=== PATIENT | male | born 1960 | race Caucasian/White ===

== ENCOUNTER 2016-08-16 14:06 | Day surgery (SDC) | payer OTHER ==
[~2016-08-16] VITALS: Ht 175.3 cm; Wt 93.0 kg
[~2016-08-16 14:06] MED LIST: 0.9% Sodium Chloride 1,000 ML IV SCH; ATEN25TA PO; ATOR80TA77 PO; CYCL10TA9 PO; LISI40TA PO; ONDA-54 PO; Sodium Chloride LOK Flush 10 mL Syringe IV PRN; fentaNYL-PF 50 mCg/mL 2 mL Inj IVPUSH PRN
[2016-08-16 14:35] VITALS: BP 122/77; PULSE 57; RESP 16; O2SAT 100
--- NOTE | 2016-08-16 16:00 | PCM.ENDCOL ---
Colonoscopy Date of Service: Aug 16, 2016 Physician Emmett Rios MD Pre Procedure Diagnosis: Screening Post Procedure Dx & Findings: Hemorrhoids diverticulosis Procedure Colonoscopy PROCEDURE IN DETAIL: Prep adequate Withdrawal time 11 minutes After unremarkable rectal examination the Olympus video colonoscope was inserted patient's anal canal and was advanced to cecum. Landmarks were identified including the ileocecal valve and appendiceal orifice. Scope was withdrawn systematically. Visualized colonic mucosa showed healthy shiny mucosa with normal healthy-appearing vasculature. Few small sigmoid diverticulosis noted. In the rectum retroflexion was done which showed hemorrhoids. Anal canal was inspected carefully on the way out and hemorrhoids noted. Impression No family history of colon cancer polyp Few small sigmoid diverticula noted. Hemorrhoids Recommendation Repeat colonoscopy 10 years Diverticular diet Presedation Assessment Risks and Benefits Informed consent was obtained from the patient after all risks and benefits including but not limited to drug reaction, infection, pain, bleeding, perforation, as well as alternatives were discussed. Patient monitoring Continuous pulse oximetry, cardiac monitoring, blood pressure monitoring, IV access, and oxygen at 2L per nasal cannula. Periprocedural Fentanyl: Fentanyl 75mcg Incrementally Midazolam: Midazolam 3mg Incrementally Complications There were no periprocedural complications identified. Post Procedure Plan Post Procedure Recommendations 1. Restrict activities today. 2. Resume normal activities in the morning. 3. Resume medications. 4. Patient informed of normal post procedure side effects as bloating, drowsiness, blood streaking in the stool. 5. average risk CRCS. If colon polyps come back as: -Hyperplastic- can repeat colonoscopy in 10 years -Tubular adenoma- repeat colonoscopy in 5 years -Tubulovillous/villous adenoma- repeat colonoscopy in 3 years -If any dysplasia- return to clinic as soon as possible 6. Please don't hesitate to call me with any questions. Emmett Rios MD Aug 16, 2016 16:00
[2016-08-16 16:01] VITALS: BP 118/73; PULSE 72; RESP 12; O2SAT 97
[2016-08-16 16:11] VITALS: BP 119/69; PULSE 68; RESP 12; O2SAT 97
[2016-08-16 16:21] VITALS: BP 115/69; PULSE 67; RESP 14; O2SAT 95
[2016-08-16 16:31] VITALS: BP 119/75; PULSE 67; RESP 12; O2SAT 97
== END 2016-08-16 23:59 | disposition home or self-care (01) ==
LOC: END 14:06
PROVIDERS: ATTEND Internal Medicine
DX: Z12.11 Encounter for screening for malignant neoplasm of colon (principal); K64.9 Unspecified hemorrhoids; K57.30 Diverticulosis of large intestine without perforation or abscess without bleeding; I10 Essential (primary) hypertension; E78.2 Mixed hyperlipidemia; M54.5 Low back pain; R73.09 Other abnormal glucose; I70.0 Atherosclerosis of aorta; K21.9 Gastro-esophageal reflux disease without esophagitis
CPT/HCPCS: G0121; G0500; J2250; J3010; J7030

== ENCOUNTER 2016-10-13 16:03 | Observation (INO) | payer OTHER ==
[~2016-10-13] VITALS: Ht 175.3 cm; Wt 96.5 kg
[~2016-10-13 16:03] MED LIST changes: -0.9% Sodium Chloride 1,000 ML IV SCH; -Sodium Chloride LOK Flush 10 mL Syringe IV PRN; -fentaNYL-PF 50 mCg/mL 2 mL Inj IVPUSH PRN
[2016-10-13 16:05] VITALS: BP 168/106; PULSE 55; RESP 16; O2SAT 99
[2016-10-13 17:00] LABS: BASOPHILS % (AUTO) 0.4 % (0-3); EOSINOPHILS % (AUTO) 0.8 % (0-5); MONOCYTES % (AUTO) 11.2 % (4-12); Mean Corpuscular Hemoglobin 30.7 pg (27.0-35.0); Mean Corpuscular Volume 90.3 fL (81-100); NEUTROPHILS % (AUTO) 67.4 % (40-74); Platelet Count 244 bil/L (150-400)
[2016-10-13 17:06] VITALS: BP 142/72; PULSE 57; RESP 20; O2SAT 99
[2016-10-13 17:19] LABS: TROPONIN T < 0.010 ug/L (0.0-0.011)
[2016-10-13 17:29] LABS: Magnesium 2.1 mg/dL (1.6-2.6)
--- NOTE | 2016-10-13 17:35 | DRSVH ---
PROCEDURE: X-RAY CHEST ONE VIEW, PORTABLE ([id number]) INDICATIONS: Chest pain TECHNIQUE: One view of the chest was acquired. COMPARISON: None. FINDINGS: Surgical changes and devices: None. Lungs and pleura: No pleural effusions or pneumothorax. Lungs are clear. Mediastinum: Mediastinal contours appear normal. Heart size is normal. Bones and chest wall: No suspicious bony lesions. Overlying soft tissues appear unremarkable. IMPRESSION: No acute cardiopulmonary disease process. Dictated by: Milly Madison MD, PhD on 10/13/2016 at 17:34 Approved by: Milly Madison MD, PhD on 10/13/2016 at 17:34
--- NOTE | 2016-10-13 17:43 | ED.REPORT ---
HPI-Chest Pain 40 and Over Date of Service Oct 13, 2016 ED Provider: Arnaud Huffman MD Pt is a 56 y/o male w/ a hx of HTN, HLD, presenting to the ED c/o substernal chest pressure which began at 11:00 today and lasted until he arrived to the ED and was given nitro. 5 days ago he had an episode of similar chest pressure lasting 6 hours. He c/o associated nausea, vomiting, SOB, lightheadedness. He was changed from Atenolol to Metoprolol last week and is concerned that he may be experiences medication side-effects from the change. Nursing Notes Stated Complaint: CARDIAC EVENT Chief Complaint: Dysrhythmia/Cardiac Nursing Notes Reviewed: Yes Allergies: Coded Allergies: hydrochlorothiazide (Verified Allergy, Unknown, 10/13/16) Scheduled Atenolol (Atenolol) 50 Mg Tablet 50 MG PO DAILY Atorvastatin Calcium (Atorvastatin Calcium) 80 Mg Tablet 80 MG PO DAILY Lisinopril (Lisinopril) 40 Mg Tablet 40 MG PO DAILY Scheduled PRN Cyclobenzaprine (Cyclobenzaprine) 10 Mg Tablet 10 MG PO TID PRN PRN Spasm General Time Seen by MD: 17:48 Chief Complaint Chest pressure Hx Obtained From: Patient Arrived By: Walk-in Sudden in Onset?: Yes Onset Occurred: 5 - 8 hours ago Symptom Duration: 1 - 4 hours Location: : Substernal Quality: Pressure Severity: Current: No pain currently Severity: Maximum: Moderate Recent Healthcare: No recent hospitalization Similar Sx Previous: No Risk Factors HEART Score HEART for MACE: High index of susp (2), Nonspec repol disturb (1), Age 45 - 65 (1), 1-2 CAD risk factors (1), < or = to NL troponin (0) HEART for MACE Score: 4-7 (mod risk 12%-16.6%) Past Medical History Past Medical History Hypertension Hyperlipidemia Past Surgical History None reported Smoking History Never Smoker Social History Alcohol Use: "Social" Ambulatory Status Independent Review of Systems Respiratory: Reports: Shortness of breath, Denies: Non-productive cough Cardiovascular: Reports: Chest pain GI: Reports: Nausea, Vomiting Neurologic: Reports: Lightheaded Complete sys rev & neg: except as marked. Physical Exam Initial Vital Signs Vital Signs (First) Date Time Temp Pulse Resp B/P Pulse Ox O2 Delivery O2 Flow Rate FiO2 10/13/16 16:05 36.0 55 16 168/106 99 Room Air Initial VS: Reviewed, Vital signs abnormal Head / Eyes: Atraumatic, Normocephalic ENT: Mucous membranes moist, Conjunctiva normal Neck: Supple, Full range of motion Extremities: Vascular intact, Neuro intact, No swelling Skin: Warm, Dry, No cyanosis Neurologic: Alert, Oriented, Nonfocal Psychiatric: Mood/affect normal, Behavior normal, Normal thought content General/Constitutional: Awake, Alert, No acute distress, Well appearing, Cooperative, Not toxic appearing Respiratory / Chest: Breath sounds NL, Breath sounds = bilat, No respiratory distress, No rales, No rhonchi, No wheezing, No retractions, No stridor Cardiovascular: Heart rate NL, Regular rhythm, Heart sounds NL, No murmurs Abdomen: Soft, Non-tender, No guarding, No rebound, No distention, No palpable mass Interpretation & Diagnostics Lab Results Interpretation Result Diagram: 10/14/16 0615 10/14/16 0615 Test 10/13/16 16:53 10/13/16 16:54 Total Bilirubin 0.4mg/dL (0.0-1.2) Aspartate Amino Transf (AST/SGOT) 25U/L (0-50) Alanine Aminotransferase (ALT/SGPT) 38U/L (0-44) Alkaline Phosphatase 106U/L (25-150) Total Protein 7.3g/dL (6.4-8.4) Albumin 4.4g/dL (3.4-5.0) Hold Gipson Top Tube Received (Received) ECG Interpretation ECG Interpretation: Sinus rhythm rate 55 Early repolarization Time: 16:45 Interpreted by: ED physician Normal ECG Interpretation: No acute ischemic changes X-Ray Chest Interpretation Chest Xray Interpretation: IMPRESSION: No acute cardiopulmonary disease process. Dictated by: Milly Madison MD, PhD on 10/13/2016 at 17:34 Approved by: Milly Madison MD, PhD on 10/13/2016 at 17:34 View: Portable, 1 view Interpretation / Wet Read by: Interpret - Radiologist Re-Eval/Medical Decision Med Decision/Clinical Course 56-year-old male history of hypertension, hyperlipidemia presenting with intermittent left-sided chest pain throughout the day today which resolved with nitroglycerin on arrival. No EKG changes. Troponins initial are negative. Patient will be admitted for ACS rule out. Time of Eval: 17:46 Patient Status: Condition resolved Re-Evaluation/Progress Note: Pt rechecked. Informed pt of need for admission for ACS ruleout. Pt understands and agrees with plan for admission. All questions addressed. Consultation : Referral / Consult Name: Hermelindo Carroll DO Consulted With: Hospitalist Super[employer]: Accepts admit Counseled Regarding: Diagnosis, Lab results, Need for admission Discharge & Departure Primary Impression: Chest pain with moderate risk for cardiac etiology Disposition: ADMITTED TO HOSPITAL Discharge Condition All VS Reviewed: Yes Condition: Stable Referrals: Brittani Atkinson MD (PCP) Scribe Attestation Portions of this note were transcribed by Jay Cárdenas. I, Dr. Huffman personally performed the history, physical exam and medical decision-making; I reviewed and confirmed the accuracy of the information in the transcribed note. copies to: Brittani Atkinson MD, Ben M MD Oct 13, 2016 17:43 JAY CÁRDENAS Oct 13, 2016 17:50 Magnesium Level 2.1mg/dL (1.6-2.6) Total Bilirubin 0.4mg/dL (0.0-1.2) Aspartate Amino Transf (AST/SGOT) 25U/L (0-50) Alanine Aminotransferase (ALT/SGPT) 38U/L (0-44) Alkaline Phosphatase 106U/L (25-150) Troponin T < 0.010ug/L (0.0-0.011) Total Protein 7.3g/dL (6.4-8.4) Albumin 4.4g/dL (3.4-5.0) Hold Gipson Top Tube Received (Received) ECG Interpretation ECG Interpretation: Sinus rhythm rate 55 Early repolarization Time: 16:45 Interpreted by: ED physician Normal ECG Interpretation: No acute ischemic changes X-Ray Chest Interpretation Chest Xray Interpretation:
[2016-10-13] MEDS ORDERED: METO25TA6 PO (18:07)
[2016-10-13] MEDS ORDERED: Ondansetron 2 mg/mL 2 mL Inj IVPUSH PRN ×2 (18:20→19:20)
[2016-10-13] MEDS ORDERED: Alum-Mag Hydrox-Simeth 30 mL Suspension PO PRN ×2 (18:20→19:20)
[2016-10-13 19:00] VITALS: BP 146/89; PULSE 64; RESP 15; O2SAT 98
[2016-10-13] MEDS ORDERED: Polyethylene Glycol (PEG) 17 Gm Powder PO PRN (19:20)
--- NOTE | 2016-10-13 19:48 | PCM.HPMED ---
Subjective Date of Service Oct 13, 2016 Primary Provider: Admitting Physician: Johan Ross MD Primary Care Physician: Brittani Atkinson MD Attending Physician: Johan Ross MD Admit Status: From the Emergency Department, Remote Telemetry Chief Complaint: chest pressure History of Present Illness: Mr. De Jesus is a pleasant 56 year old gentleman with reported history of hypertension and hyperlipidemia, that presented to the emergency department with a history of 2 episodes of chest pressure, with associated headache, dizziness, lightheadedness, nausea and vomiting, shortness of breath, and diaphoresis. Initial laboratory results were unremarkable for any elevated cardiac enzymes, and no acute EKG changes were seen. Patient was admitted for observation and further work up of acute coronary syndrome. - Hospital day 1 Patient reports 2 episodes of similar presentation, with initial being recent 10/08/2016, and a second recurrence day of admission, 10/13/2016. Patient reports symptoms of chest pressure or merely over left side of chest, without any radiation, and no history of similar other than the previous Tuesday episode. He denies any associated abdominal pain; admits to chest pain/pressure , headache, dizziness, lightheaded, nausea, vomiting, shortness of breath, diaphoresis, and overall "feeling terrible." He states he tried his sea sick medication did not provide any relief. States that his previous episode that occurred Tuesday prior to admission was worse in presentation and symptoms than day of admission. He states day of admission, symptoms began approximately 11 AM. He attributes his symptoms to a change of his home medications from atenolol to metoprolol, and has been on metoprolol therapy for approximately the recent week. He believes his symptoms correlate with this change in medication. He describes the onset of symptoms as rapid, lasting approximately 6 hours, and improvements were reported with rest and time. In the ED, initial vitals include temperature 36.0, pulse 55, respiratory rate 16, blood pressure 168/106, 99% on room air; white count 7.6 with no shift, hemoglobin 15.2, hematocrit 44.7, platelets 244; sodium 140, potassium 4.1, creatinine 0.75, glucose 142, LFTs within range, initial troponin T negative; chest x-ray did not reveal any acute cardiopulmonary disease; EKG revealed normal sinus rhythm without any acute ST-T changes, QTc was noted to be 410, and rate 55. Initial therapies included aspirin 324 mg 1, Nitrostat sublingual. Patient was transferred to medical floor in stable condition Review of Systems: Complete review of systems obtained, pertinent positives and negatives as noted in history of present illness Allergies Coded Allergies: hydrochlorothiazide (Verified Allergy, Unknown, 10/13/16) Home Medications Patient reports: Atorvastatin, lisinopril, metoprolol ED documentation shows: Scheduled Atorvastatin Calcium (Atorvastatin Calcium) 80 Mg Tablet 80 MG PO DAILY Lisinopril (Lisinopril) 40 Mg Tablet 40 MG PO DAILY Metoprolol Tartrate (Metoprolol Tartrate) 25 Mg Tablet 25 MG PO BID Scheduled PRN Cyclobenzaprine (Cyclobenzaprine) 10 Mg Tablet 10 MG PO TID PRN PRN Spasm PMH Patient reports: Hypertension Hyperlipidemia Patient denies any history of diabetes or heart failure Surgical History None reported Family History Patient reports significant cardiac history including paternal grandparent whom at age 55 secondary to coronary artery disease and myocardial infarction Patient also reports extensive family history of hyperlipidemia, but denies any family history of diabetes, stroke/TIA Social History Occupation: warehouse receiving supervisor Hx Alcohol Use: Yes (reports 2-3 glasses of whiskey nightly) Alcoholic Drinks Per Day: 2-3 Hx Substance Use: Yes (distant use of marijuana) Hx Tobacco Use: No Smoking Status: Never Smoker Living Arrangement: with Family (girlfriend, local in ) Exam Vital Signs Vital Sign - Last Date Time Temp Pulse Resp B/P Pulse Ox O2 Delivery O2 Flow Rate FiO2 10/13/16 19:00 64 15 146/89 98 Room Air 10/13/16 16:05 36.0 Exam General: Alert and oriented 3; pleasant gentleman resting supine in bed in no acute distress HEENT: Atraumatic, normocephalic, sclera anicteric, membranes moist Neck: Full range of motion without pain Cardiac: Regular rate and rhythm at time of examination without any appreciable murmurs Respiratory: Equal airflow all calvin without any wheeze or rhonchi Chest: Atraumatic without any reproducible pain with palpation Abdomen: Soft, nontender, nondistended Extremities: No edema appreciated Skin: Warm and dry MSK: 5/5 strength 4/4 extremities at major joints of the shoulder, hip Neuro: Cranial nerves II-XII grossly intact, speech without slur, facial expressions equal and symmetric Psych: Appropriate mood, affect, and responses to questions; good insight and judgment Lab and Diagnostics Result Diagram: 10/13/16165210/13/161652 Assessment & Plan Mr. De Jesus is a pleasant 56 year old gentleman with reported history of hypertension and hyperlipidemia, that presented to the emergency department with a history of 2 episodes of chest pressure, with associated headache, dizziness, lightheadedness, nausea and vomiting, shortness of breath, and diaphoresis. Initial laboratory results were unremarkable for any elevated cardiac enzymes, and no acute EKG changes were seen. Patient was admitted for observation and further work up of acute coronary syndrome. - Hospital day 1 Chest pressure, acute, present on admission, under evaluation - Cardiac likely in a patient with a history of hypertension, hyperlipidemia, strong family history coronary artery disease - Medication adverse effect possibility recent change atenolol to metoprolol, the patient has moderate risk for cardiac events - HEART score: 4 (history +1, EKG +0, age +1, risk factors greater than 3 +2, initial troponin +0) - EKG prn cardiac symptoms; EKG in a.m. - PRN morphine - Labs: Evaluate for electrolytes, thyroid possible etiologies for symptoms - Initiate daily aspirin therapy; patient already on statin, ACEi, beta paresh - Exercise treadmill NM in am - Npo at midnight Suspected adverse medication reaction, acute, present on admission, under consideration - Patient reports recent outpatient change from atenolol to metoprolol - We will discontinue metoprolol at this time; consider change to carvedilol for patient at discharge - We will be holding morning beta paresh secondary to pending cardiac stress test Hypertension, chronic, presumed stable - We will hold beta paresh secondary to impending cardiac stress test - Consider change from metoprolol to carvedilol as noted above Hyperlipidemia, chronic, presumed stable - Continue statin therapy - We will check lipid panel PRN fever, bowel, nausea, pain DVT: Hep q8 Diet: Heart healthy until 0000 10/14/2016 GI: H2B Code: FULL CODE Pt status: Due to presenting symptoms, risk of adverse events, and likely course of care, patient not expected to stay greater than 2 midnight; patient admitted as observation status Pain Evaluation: Adequate Pain Control GI Prophylaxis: H2 paresh VTE Prophylaxis: Sub-Q Heparin (Unfractionated) Resuscitation Status: CPR: Attempt Resuscitation Attending Statement The patient was seen and examined together with Dr. Kay on 10/13 and I agree with the history, exam and plan as outlined in the note above. Bernie Kay DO Oct 13, 2016 19:48 Johan Ross MD Oct 13, 2016 23:58
[2016-10-13 20:20] VITALS: BP 170/102; PULSE 53; RESP 18; O2SAT 97
[2016-10-13 23:50] VITALS: BP 174/97; PULSE 59; RESP 18; O2SAT 98
[2016-10-14] VITALS (14 sets, daily range): BP systolic 143–170; BP diastolic 85–117; PULSE 54–84; RESP 16–18; O2SAT 96–99
[2016-10-14] MEDS: Heparin 5,000 Unit/mL Inj SUBQ SCH ×3 (00:41→17:50)
--- NOTE | 2016-10-14 06:38 | NUR ---
Admit Admitted from ED via stretcher. Able to ambulate on arrival with strong steady gait and no noted issues. IV SL. RA w/o SOB. Tele SR w/o CP. NPO at midnight per MD orders. Personal belonging at bedside. Oriented to call light use and using for needs.
[2016-10-14 06:58] LABS: BASOPHILS % (AUTO) 0.3 % (0-3); EOSINOPHILS % (AUTO) 1.6 % (0-5); Mean Corpuscular Hemoglobin 30.8 pg (27.0-35.0); Mean Corpuscular Volume 90.2 fL (81-100); NEUTROPHILS % (AUTO) 66.5 % (40-74); Platelet Count 200 bil/L (150-400)
[2016-10-14 07:25] LABS: Magnesium 1.9 mg/dL (1.6-2.6); Phosphorus 3.4 mg/dL (2.5-4.9)
[2016-10-14] MEDS ORDERED: Lisinopril 40 Tablet PO SCH (07:55)
[2016-10-14] MEDS ORDERED: Lisinopril 40 Tablet PO ONE (08:50)
--- NOTE | 2016-10-14 09:05 | NUR ---
Social Work-initial assessment/ readiness for discharge: Data:See initial assessment. Pt is a 56 y/o male who was admitted on 10/13/16 for chest pain per H&P. Pt's insurance is [employer] and PCP is Brittani Atkinson MD. EMR reviewed. Pt's readmission score is 0. SW met with pt at bedside, SW role explained. Pt is alert and oriented x3. Pt resides at home alone where he remains independent with ADLs at baseline. Pt drives and does not use any DME. Pt has no HH or SNF history. Pt has no prison care insurance or VA benefits. SW discussed DPOA/ advanced directive, pt has not completed this and is declining any information. No concerns noted about pt's capacity for self care per RN or MD. Pt has been up independent in his room. SW provided pt with discharge planning checklist and encouraged pt to call with any questions,phone number provided on white board in room. pt's family to provide transport home. No anticipated discharge needs. SW will continue to follow if needs arise. Assessment:Pt who is independent at baseline. Plan:Pt to discharge home when medically stable via POV. No anticipated discharge needs. SW will continue to follow if needs arise. MEHDI Pappas Addendum: 10/14/16 at 0915 by JONAS MAYBERRY Amended: Links added.
[2016-10-14] MEDS: Famotidine Inj 20 MG in IV Premix 1 EACH IV SCH ×2 (09:40→19:59)
[2016-10-14] MEDS ORDERED: ATEN50TA PO (10:04)
[2016-10-14] MEDS ORDERED: Labetalol 5 mg/mL 20 mL Inj IVPUSH ONE (11:50)
--- NOTE | 2016-10-14 12:34 | DRSVH ---
[facility] [address] [place] [address] Echocardiogram Report Name: PIETRO ORDAZ RStudy Date: 10/14/2016 Height: 69 in Hospital Exam Location: [facility] Weight: 212 lb Gender: Male BSA: 2.1 m2 : 1960 Age: 56 yrs BP: 170/90 mmHg Reason For Study: Chest Pain Ordering Physician: HOSPITALIST [facility] Performed By: Mckayla Aquino [facility]erring Phys[facility] Interpretation Summary Left ventricular wall thickness is mildly increased. Left ventricular systolic function is normal without focal wall motion abnormalities. The ejection fraction is estimated to be 60-65%. The right ventricle is normal in size and function. Pulmonary artery pressures cannot be estimated because of the lack of a measurable TR jet velocity. The left atrial size is normal. The right atrium is normal in size. There is no significant valvular heart disease. The ascending aorta is mildly enlarged. Procedure: A two-dimensional transthoracic echocardiogram with color flow and Doppler was performed. The study quality was technically adequate. The apical views were difficult to obtain and are suboptimal in quality. Most of the acoustic windows were suboptimal, but the best imaging was obtained from the parasternal window. There is no prior echocardiogram noted for this patient. The patient was in normal sinus rhythm during the exam. Left Ventricle: The left ventricle is normal in size. Left ventricular wall thickness is mildly increased. Left ventricular systolic function is normal without focal wall motion abnormalities. The ejection fraction is estimated to be 60-65%. Assessment of diastolic parameters indicates normal left ventricular diastolic function and normal filling pressures. Right Ventricle: The right ventricle is normal in size and function. Atria: The left atrial size is normal. The right atrium is normal in size. The interatrial septum is intact with no evidence for an atrial septal defect. Mitral Valve: The mitral valve leaflets appear mildly thickened, but open well. There is trace mitral regurgitation. Aortic Valve: The aortic valve is trileaflet. The aortic valve opens well. No aortic regurgitation is present. Tricuspid Valve: The tricuspid valve leaflets are thin and pliable. There is trace tricuspid regurgitation. Pulmonary artery pressures cannot be estimated because of the lack of a measurable TR jet velocity. Pulmonic Valve: The pulmonic valve is normal in structure and function. There is a trace or physiologic amount of pulmonic regurgitation. There is no significant valvular heart disease. Great Vessels: The aortic root is normal size. The ascending aorta is mildly enlarged. The IVC is of normal diameter and collapses greater than 50% with a sniff. This suggests a low right atrial pressure of 3 mm Hg. Pericardium/ Pleura There is an anterior echo-free space consistent with a fat pad. There is no pericardial effusion. There is no pleural effusion. MMode/2D Measurements & Calculations LVIDd: 4.7 cm RA long axis LVOT diam LVIDs: 3.3 cm LA A2 area: 19.7 cm FS: 30.5 % LA A4 area: 22.7 cm RA area asc Aorta IVSd: 1.1 cm LA length (vol): 6.0 cm Diam: 3.6 cm LVPWd: 1.1 cm LA vol: 63.3 ml : 13.3 cm LA vol index RA vol: 36.6 ml RA : 29.9 ml/m2 : 17.3 mm2 LV gong. diameter/BSA LV sys. diameter/BSA TAPSE: 2.9 cm (cm/m^2): 2.2 (cm/m^2): 1.5 Doppler Measurements & Calculations Ao V2 max: 119.6 cm/secMV E max joe MV E/A: 1.1 PA V2 max Ao max P.7 mmHg : 75.4 cm/sec Med Peak E' Joe : 57.0 cm/sec Ao mean P.7 mmHg MV A max joe PA mean PG LVOT Max Joe : 66.8 cm/sec E/E' med: 11.9 : 0.63 mmHg : 97.4 cm/sec Lat Peak E' Joe DANIELITO(I,D): 3.6 cm sev ratio: 0.83 E/E' lat: 9.6 E/e' average MV dec time: 0.16 sec Ao V2 mean LV V1 max PG PA V2 mean : 77.7 cm/sec : 37.3 cm/sec Ao V2 VTI: 23.8 cmLV V1 VTI: 19.8 cm PA pr(Accel) DANIELITO(V,D): 3.5 cm2 : 24.1 mmHg DANIELITO indexed to BSA (cm^2/m^2): 1.7 Reading Physician:KOFI
--- NOTE | 2016-10-14 15:02 | PCM.PNMED ---
Subjective Date of Service Oct 14, 2016 Subjective pt was asymptomatic but stress test was canceled due to high DBP newly started amlodipine 5mg and continued [id number] Exam Vital Signs Vital Sign - Last Date Time Temp Pulse Resp B/P Pulse Ox O2 Delivery O2 Flow Rate FiO2 10/14/16 14:32 62 158/99 10/14/16 11:43 97 10/14/16 11:40 Room Air 10/14/16 10:00 36.7 18 Intake and Output 10/13/16 10/13/16 10/14/16 Cumulative From/Thru 15:00 23:00 07:00 10/13/16 16:05 - 10/14/16 00:30 Intake Total 0 ml 0 ml Balance 0 ml 0 ml IV Total 0 ml 0 ml IVs and Medications Medications Reviewed: Medications were reviewed in detail Lab and Diagnostics Result Diagram: 10/14/16 0615 10/14/16 0615 Assessment & Plan Mr. De Jesus is a pleasant 56 year old gentleman with reported history of hypertension and hyperlipidemia, that presented to the emergency department with a history of 2 episodes of chest pressure, with associated headache, dizziness, lightheadedness, nausea and vomiting, shortness of breath, and diaphoresis. Initial laboratory results were unremarkable for any elevated cardiac enzymes, and no acute EKG changes were seen. Patient was admitted for observation and further work up of acute coronary syndrome. Chest pressure, acute, present on admission, Cardiac likely in a patient with a history of hypertension, hyperlipidemia, strong family history coronary artery disease. HEART score: 4 (history +1, EKG +0, age +1, risk factors greater than 3 +2, initial troponin +0) -pt remained clinially stable today - PRN morphine - Labs: Evaluate for electrolytes, thyroid possible etiologies for symptoms - Initiate daily aspirin therapy; patient already on statin, ACEi, beta paresh - Exercise treadmill NM tomorrow AM, delayed due to increased DBP - Npo at midnight Suspected adverse medication reaction, POA, probable allergic reaction given newly developed hoarseness per pt, currently asymptomatic, -will switch back to atenolol on d/c HTN, POA, uncontrolled 150/100s, continue lisinopril, atenolol, added amlodipine 5mg today chronic, stable Hypertension, chronic, presumed stable - We will hold beta paresh secondary to impending cardiac stress test - Consider change from metoprolol to carvedilol as noted above Hyperlipidemia, chronic, presumed stable - Continue statin therapy - We will check lipid panel PRN fever, bowel, nausea, pain DVT: Hep q8 Diet: Heart healthy until 0000 10/14/2016 GI: H2B Code: FULL CODE Pt status: likely tomorrow after stress test GI Prophylaxis: H2 paresh VTE Prophylaxis: Sub-Q Heparin (Unfractionated) Resuscitation Status: CPR: Attempt Resuscitation Time spent 35min Emely Verdin MD Oct 14, 2016 15:02
--- NOTE | 2016-10-14 18:20 | NUR ---
Shift Report: Patient was slated to get Stress Test today but BP was not in parameters, even after a dose of 15mg of Labetalol. Postponed to 0845 tomorrow morning. New meds ordered to be given before test. Will be NPO at midnight again.
[2016-10-15] MEDS: Heparin 5,000 Unit/mL Inj SUBQ SCH ×2 (00:03→08:30)
[2016-10-15 04:43] VITALS: BP 139/89; PULSE 59; RESP 16; O2SAT 95
[2016-10-15 06:08] VITALS: PULSE 58
[2016-10-15] MEDS: Famotidine Inj 20 MG in IV Premix 1 EACH IV SCH (08:30)
--- NOTE | 2016-10-15 09:23 | NUR ---
Transferred to [facility] Patient transferred to [facility]L at 0923.
[2016-10-15 09:33] VITALS: BP 142/77; PULSE 63; RESP 17; O2SAT 97
[2016-10-15 10:12] VITALS: PULSE 60
[2016-10-15 13:16] VITALS: BP 156/104; PULSE 59; RESP 18; O2SAT 99
--- NOTE | 2016-10-15 13:26 | DRSVH ---
PROCEDURE: 1 DAY TREADMILL STRESS TEST Rest and exercise myocardial perfusion SPECT with gated imaging and ejection fraction RADIOPHARMACEUTICAL: 8 .8 mCi Tc-99m tetrafosmin IV at rest and 25.7 mCi Tc-99m tetrafosmin IV at pea k exercise. [id number] was performed. INDICATIONS: Chest pain/pressure. TECHNIQUE: Radiopharmaceutical was injected at peak stress test, and also at rest. SPECT images wer e obtained. SPECT myocardial perfusion images were displayed in short axis, horizontal long axis, an d vertical long axis views. Gated images were reviewed using [employer] software. COMPARISON: None. CARDIAC STRESS: A standard Iam treadmill exercise tolerance test was performed by the patient under the supervision of an attending staff. The patient exercised for 9 minutes and 33 seconds; functional aerobic impai rment (FARTUN) is -6 %. Hemodynamic data: Hypertensive response to stress is present, with blood pressure of 170/90. There i s normal heart rate response to exercise stress. Patient achieved 91% of maximum predicted heart rat e at peak exercise. Symptoms: Patient denied chest pain during exercise. EKG: No diagnostic EKG changes of ischemia; no ectopy. Bradycardia is seen at baseline. FINDINGS: Raw data: There is good myocardial labeling by radiotracer. No significant motion artifacts. Left ventricle function: Gated images demonstrate normal left ventricle wall thickening. No segment al wall motion abnormality. The left ventricle resting end-diastolic volume is 65 mL. Left ventricl e stress ejection fraction is 70%; normal values are above 45%. Myocardial perfusion: There is normal distribution of activity in the left and right ventricular sumanth cardium. No fixed or reversible perfusion defects. IMPRESSION: 1. No evidence of myocardial ischemia. 2. Hypertensive response to exercise. 3. Normal left ventricular function. PQRS ATTESTATIONS: Measure 322 - Is this imaging test primarily performed on a low-risk surgery patient for preoperative evaluation within 30 days preceding their low-risk non-cardiac surgery? Low-risk surgery is defined as cardiac or myocardial infarction less than 1%, including (but not limited to) endoscopic pr ocedures, superficial procedures, cataract surgery, and excisional breast surgery: Answer: No Measure 323 - Is this imaging test performed primarily for the monitoring of an asymptomatic patient who had percutaneous coronary intervention on the visit date or within 2 years of the visit date? An swer: No Measure 324 - Is this imaging test performed primarily for the initial detection and risk assessment on an asymptomatic, low coronary heart disease patient? Low CHD risk definition = clinicians should consider the maximum number of available patient factors used to estimate risk based on [place] (A TP III criteria), typically age, gender, diabetes, smoking status, and use of blood pressure medicati on, and integrate age appropriate estimates for missing elements, such as LDL or standard blood press ure. Answer: No Dictated by: Ayala Jarvis M.D. on 10/15/2016 at 13:22 Approved by: Ayala Jarvis M.D. on 10/15/2016 at 13:25
--- NOTE | 2016-10-15 13:45 | PCM.DIMED ---
Discharge Instructions Date of Service Oct 14, 2016 Dates of Hospitalization Oct 13, 2016 at 18:28 Discharge Diagnosis Discharge Diagnosis Chest pain, unlikely cardiac etiology Diet Discharge Diet: No restrictions, Low fat, Low Sodium Activity Discharge Activity: No restrictions Call your provider Call your provider for: Shortness of breath, Chest pain Patient Instructions Patient Instructions Your hospitalized with 2 episode of acute onset chest pain. All of the workup during hospitalization shows that you do not have active heart attack. As you may have experienced adverse effect from metoprolol, atenolol will be resumed. Please follow-up with your primary doctor in one or 2 weeks Please return to hospital if you notice more frequent and severe degree of chest pain Follow-up Provider: Brittani Atkinson MD Follow-up with PCP in: 1 week Emely Verdin MD Oct 14, 2016 11:14
--- NOTE | 2016-10-15 14:30 | NUR ---
Social Work: Discharge Note Data: EMR reviewed. Patient is on day 2 of hospitalization for chest pain per H&P. Patient was discussed in morning rounds. Patient has been deemed medically stable for discharge per MD. Patient has no anticipated discharge needs at this time. Transportation will be provided by family. Assessment: Patient will discharge home. Plan: Patient will discharge home today. Patient has no discharge needs. Transportation will be provided by family. Patient has no additional needs at this time. MEHDI Baird
[2016-10-15 15:18] VITALS: BP 144/91; PULSE 62; O2SAT 98
[2016-10-15] MEDS ORDERED: AMLO5TAB2 PO (15:40)
--- NOTE | 2016-10-15 16:12 | NUR ---
Discharge Patient discharge to home with all belongings at 1600. Explained to patient new medications (amlodipine, atenolol), when next medications are due and discharge instructions. Patient verbalized understanding. Dc'd IV intact. Dc'd telemetry. Vitals stable. Patient left floor on his own two feet with no signs of distress accompanied by this RN.
--- NOTE | 2016-10-15 16:40 | PCM.DC.MED ---
Discharge Summary Date of Service Oct 15, 2016 Dates of Hospitalization Date of Hospital Admission Oct 13, 2016 at 18:28 Date of Discharge: Oct 15, 2016 Providers: Admitting Physician: Johan Ross MD Primary Care Physician: Brittani Atkinson MD Attending Physician: Emely Hudson MD Diagnosis at Time of Discharge Diagnosis at Time of Discharge Chest pain, unlikely cardiac etiology Procedures XRay, CTs & MRIs PROCEDURE: 1 DAY TREADMILL STRESS TEST Rest and exercise myocardial perfusion SPECT with gated imaging and ejection fraction RADIOPHARMACEUTICAL: 8 .8 mCi Tc-99m tetrafosmin IV at rest and 25.7 mCi Tc-99m tetrafosmin IV at peak exercise. [id number] was performed. INDICATIONS: Chest pain/pressure. TECHNIQUE: Radiopharmaceutical was injected at peak stress test, and also at rest. SPECT images were obtained. SPECT myocardial perfusion images were displayed in short axis, horizontal long axis, and vertical long axis views. Gated images were reviewed using [employer] software. COMPARISON: None. CARDIAC STRESS: A standard Iam treadmill exercise tolerance test was performed by the patient under the supervision of an attending staff. The patient exercised for 9 minutes and 33 seconds; functional aerobic impairment (FARTUN) is -6 %. Hemodynamic data: Hypertensive response to stress is present, with blood pressure of 170/90. There is normal heart rate response to exercise stress. Patient achieved 91% of maximum predicted heart rate at peak exercise. Symptoms: Patient denied chest pain during exercise. EKG: No diagnostic EKG changes of ischemia; no ectopy. Bradycardia is seen at baseline. FINDINGS: Raw data: There is good myocardial labeling by radiotracer. No significant motion artifacts. Left ventricle function: Gated images demonstrate normal left ventricle wall thickening. No segmental wall motion abnormality. The left ventricle resting end-diastolic volume is 65 mL. Left ventricle stress ejection fraction is 70%; normal values are above 45%. Myocardial perfusion: There is normal distribution of activity in the left and right ventricular myocardium. No fixed or reversible perfusion defects. IMPRESSION: 1. No evidence of myocardial ischemia. 2. Hypertensive response to exercise. 3. Normal left ventricular function. PQRS ATTESTATIONS: Measure 322 - Is this imaging test primarily performed on a low-risk surgery patient for preoperative evaluation within 30 days preceding their low-risk non- cardiac surgery? Low-risk surgery is defined as cardiac or myocardial infarction less than 1%, including (but not limited to) endoscopic procedures, superficial procedures, cataract surgery, and excisional breast surgery: Answer : No Measure 323 - Is this imaging test performed primarily for the monitoring of an asymptomatic patient who had percutaneous coronary intervention on the visit date or within 2 years of the visit date? Answer: No Measure 324 - Is this imaging test performed primarily for the initial detection and risk assessment on an asymptomatic, low coronary heart disease patient? Low CHD risk definition = clinicians should consider the maximum number of available patient factors used to estimate risk based on [place] ( ATP III criteria), typically age, gender, diabetes, smoking status, and use of blood pressure medication, and integrate age appropriate estimates for missing elements, such as LDL or standard blood pressure. Answer: No Dictated by: Ayala Jarvis M.D. on 10/15/2016 at 13:22 Approved by: Ayala Jarvis M.D. on 10/15/2016 at 13:25 Brief History HPI obtained on 10/13 Mr. De Jesus is a pleasant 56 year old gentleman with reported history of hypertension and hyperlipidemia, that presented to the emergency department with a history of 2 episodes of chest pressure, with associated headache, dizziness, lightheadedness, nausea and vomiting, shortness of breath, and diaphoresis. Initial laboratory results were unremarkable for any elevated cardiac enzymes, and no acute EKG changes were seen. Patient was admitted for observation and further work up of acute coronary syndrome. - Hospital day 1 Patient reports 2 episodes of similar presentation, with initial being recent 10/08/2016, and a second recurrence day of admission, 10/13/2016. Patient reports symptoms of chest pressure or merely over left side of chest, without any radiation, and no history of similar other than the previous Tuesday episode. He denies any associated abdominal pain; admits to chest pain/pressure , headache, dizziness, lightheaded, nausea, vomiting, shortness of breath, diaphoresis, and overall "feeling terrible." He states he tried his sea sick medication did not provide any relief. States that his previous episode that occurred Tuesday prior to admission was worse in presentation and symptoms than day of admission. He states day of admission, symptoms began approximately 11 AM. He attributes his symptoms to a change of his home medications from atenolol to metoprolol, and has been on metoprolol therapy for approximately the recent week. He believes his symptoms correlate with this change in medication. He describes the onset of symptoms as rapid, lasting approximately 6 hours, and improvements were reported with rest and time. In the ED, initial vitals include temperature 36.0, pulse 55, respiratory rate 16, blood pressure 168/106, 99% on room air; white count 7.6 with no shift, hemoglobin 15.2, hematocrit 44.7, platelets 244; sodium 140, potassium 4.1, creatinine 0.75, glucose 142, LFTs within range, initial troponin T negative; chest x-ray did not reveal any acute cardiopulmonary disease; EKG revealed normal sinus rhythm without any acute ST-T changes, QTc was noted to be 410, and rate 55. Initial therapies included aspirin 324 mg 1, Nitrostat sublingual. Patient was transferred to medical floor in stable condition Hospital Course Mr. De Jesus is a pleasant 56 year old gentleman with reported history of hypertension and hyperlipidemia, that presented to the emergency department with a history of 2 episodes of chest pressure, with associated headache, dizziness, lightheadedness, nausea and vomiting, shortness of breath, and diaphoresis. Initial laboratory results were unremarkable for any elevated cardiac enzymes, and no acute EKG changes were seen. Patient was admitted for observation and further work up of acute coronary syndrome. brief hospital course pt was admitted to hospital with chest pain, underwent ischemic eval with TTE, stress test, serial troponins, all suggestive of non-cardic etiology. Patient remained asymptomatic. Pt was noted to have high DBP>100, tolerated newly started Almodipine 5mg daily well, Plan is to continue Atenolol 50mg rather than 25mg, possibly Amlodipine 5mg if SBP consistently<140 at home, pt seemed capable of monitoring BP at home, also encouraged healthy lifestyle, follow up with PCP in 1-2week. Chest pressure, acute, present on admission, Cardiac likely in a patient with a history of hypertension, hyperlipidemia, strong family history coronary artery disease. HEART score: 4 (history +1, EKG +0, age +1, risk factors greater than 3 +2, initial troponin +0) -pt remained clinially stable today - PRN morphine - Labs: Evaluate for electrolytes, thyroid possible etiologies for symptoms - Initiate daily aspirin therapy; patient already on statin, ACEi, beta paresh - Exercise treadmill NM tomorrow AM, delayed due to increased DBP - Npo at midnight Suspected adverse medication reaction, POA, probable allergic reaction given newly developed hoarseness per pt, currently asymptomatic, -will switch back to atenolol on d/c HTN, POA, uncontrolled 150/100s, continue lisinopril, atenolol, added amlodipine 5mg today chronic, stable Hypertension, chronic, presumed stable - We will hold beta paresh secondary to impending cardiac stress test - Consider change from metoprolol to carvedilol as noted above Hyperlipidemia, chronic, presumed stable - Continue statin therapy - We will check lipid panel PRN fever, bowel, nausea, pain DVT: Hep q8 Diet: Heart healthy until 0000 10/14/2016 GI: H2B Code: FULL CODE Pt status: likely tomorrow after stress test Exam Vital Signs (Last) Date Time Temp Pulse Resp B/P Pulse Ox O2 Delivery O2 Flow Rate FiO2 10/15/16 15:18 62 144/91 98 Room Air 10/15/16 13:16 36.8 18 Exam pt was examined on the day of d/c Test 10/13/16 16:53 10/13/16 16:54 10/14/16 06:15 Total Bilirubin 0.4mg/dL (0.0-1.2) Aspartate Amino Transf (AST/SGOT) 25U/L (0-50) Alanine Aminotransferase (ALT/SGPT) 38U/L (0-44) Alkaline Phosphatase 106U/L (25-150) Total Protein 7.3g/dL (6.4-8.4) Albumin 4.4g/dL (3.4-5.0) Hold Gipson Top Tube Received (Received) White Blood Count 7.3th/mm3 (3.8-10.1) Red Blood Count 4.81mil/mm3 (4.40-5.80) Hemoglobin 14.8g/dL (13.8-17.2) Hematocrit 43.4% (41.0-50.0) Mean Corpuscular Volume 90.2fL (81-100) Mean Corpuscular Hemoglobin 30.8pg (27.0-35.0) Mean Corpuscular Hemoglobin Concent 34.1% (32.0-37.0) Red Cell Distribution Width 13.6% (12.3-15.4) Platelet Count 200bil/L (150-400) Neutrophils (%) (Auto) 66.5% (40-74) Lymphocytes (%) (Auto) 19.2% (14-46) Monocytes (%) (Auto) 12.0% (4-12) Eosinophils (%) (Auto) 1.6% (0-5) Basophils (%) (Auto) 0.3% (0-3) Sodium Level 143mEq/L (134-144) Potassium Level 4.4mEq/L (3.5-5.2) Chloride Level 107mEq/L (97-108) Carbon Dioxide Level 22mmol/L (18-29) Blood Urea Nitrogen 17mg/dL (6-24) Creatinine 0.73mg/dL (0.76-1.27) Estimat Glomerular Filtration Rate 119mL/min (>59) Glucose Level 100mg/dL (60-99) Calcium Level 9.0mg/dL (8.5-10.1) Phosphorus Level 3.4mg/dL (2.5-4.9) Magnesium Level 1.9mg/dL (1.6-2.6) Troponin T 0.010ug/L (0.0-0.011) Triglycerides Level 72mg/dL (0-149) Cholesterol Level 141mg/dL (100-199) LDL Cholesterol, Calculated 74.600mg/dL (0-99) VLDL Cholesterol 14.400mg/dL HDL Cholesterol 52mg/dL (>39) Cholesterol/HDL Ratio 2.71 (0.0-4.4) Thyroid Stimulating Hormone (TSH) 1.200uIU/mL (0.450-4.500) Free Thyroxine 1.03ng/dL (0.82-1.77) Discharge Medications Discharge Medications Amlodipine (Amlodipine) 5 Mg Tablet 5 MG PO DAILY Prescribed by: EMELY HUDSON MD Atenolol (Atenolol) 50 Mg Tablet 50 MG PO DAILY Prescribed by: EMELY HUDSON MD Atorvastatin Calcium (Atorvastatin Calcium) 80 Mg Tablet 80 MG PO DAILY ( Reported) Lisinopril (Lisinopril) 40 Mg Tablet 40 MG PO DAILY (Reported) As needed Cyclobenzaprine (Cyclobenzaprine) 10 Mg Tablet 10 MG PO TID PRN PRN Spasm ( Reported) Followup Plan Disposition: home Discharge Diet: No restrictions, Low fat, Low Sodium Discharge Activity: No restrictions Patient Instructions Your hospitalized with 2 episode of acute onset chest pain. All of the workup during hospitalization shows that you do not have active heart attack. As you may have experienced adverse effect from metoprolol, atenolol will be resumed. Please follow-up with your primary doctor in one or 2 weeks Please return to hospital if you notice more frequent and severe degree of chest pain Follow-up Provider: Brittani Atkinson MD Follow-up with PCP in: 1 week Time spent 65min Emely Hudson MD Oct 15, 2016 16:40
== END 2016-10-15 16:00 | disposition home or self-care (01) ==
LOC: SED 16:03 → MPC 18:28
PROVIDERS: ADMIT Hospitalist; ATTEND Hospitalist
DX: R07.9 Chest pain, unspecified (principal); I10 Essential (primary) hypertension; E78.5 Hyperlipidemia, unspecified; Z88.8 Allergy status to other drugs, medicaments and biological substances
CPT/HCPCS: 36415; 71010; 78452; 80048; 80053; 80061; 83735; 84100; 84439; 84443; 84484; 85025; 93005; 93017; 96372; 96374; 96375; 96376; 99285; A9502; C8929; G0378; J1644; J3490